=== PATIENT | female | born 1970 | race Caucasian/White ===

== ENCOUNTER 2022-04-17 06:39 | Day surgery (SDC) | payer OTHER ==
[~2022-04-17] VITALS: Ht 176 cm; Wt 79.8 kg
[2022-04-17] MEDS ORDERED: diphenhydrAMINE 50 MG/ML VIAL ONE (07:49)
[2022-04-17] MEDS ORDERED: fentaNYL citrate 0.05 MG/ML VIAL ONE (07:49)
[2022-04-17] MEDS ORDERED: LIDOCAINE 2% 100 MG/5 ML UJET TP ONE (07:50)
[2022-04-17] MEDS ORDERED: MIDAZOLAM 5 MG/5 ML VIAL ONE (07:50)
[2022-04-17] MEDS ORDERED: fentaNYL citrate 0.05 MG/ML VIAL IVP ONE (11:50)
[2022-04-17] MEDS ORDERED: MIDAZOLAM 2 MG/2 ML VIAL IVP ONE (11:50)
== END 2022-04-17 09:06 | disposition home or self-care (01) ==
LOC: MMU 06:39 → MDS 06:39
PROVIDERS: ATTEND Internal Medicine Gastroenterology
DX: Z12.11 Encounter for screening for malignant neoplasm of colon (principal); F41.9 Anxiety disorder, unspecified; F32.A Depression, unspecified; Z20.822 Contact with and (suspected) exposure to COVID-19; Z80.0 Family history of malignant neoplasm of digestive organs; Z79.899 Other long term (current) drug therapy
CPT/HCPCS: 45378; 87426; J2250; J3010; J1200